=== PATIENT | female | born 1935 | race Caucasian/White ===

== ENCOUNTER 2024-02-01 19:25 | Emergency (ER) | payer MEDICARE ==
[2024-02-01] MEDS ORDERED: Sodium Chloride 0.9% 10 ML Syringe FLUSH PRN (20:05)
[2024-02-01] MEDS: Sodium Chloride 0.9% 1,000 ML IV SCH (20:09)
[2024-02-01 20:12] LABS: HEMATOCRIT 43.2 % (37.0-47.0); HEMOGLOBIN 14.8 g/dL (11.5-16.5); MEAN CORPUSCULAR HEMOGLOBIN 31.6 pg (27.0-32.0); MEAN CORPUSCULAR HGB CONC 34.3 g/dL (31.0-35.0); RED BLOOD CELL COUNT 4.69 M/uL (3.80-5.80); RED CELL DISTRIBUTION WIDTH 12.9 % (11.0-16.0); WHITE BLOOD CELL COUNT,WBC 13.4 K/uL (4.0-11.0)
[2024-02-01 20:37] LABS: A/G RATIO 1.1 (0.8-2.0); ALBUMIN 3.9 g/dL (3.4-5.0); ANION GAP 14.5 mmol/L (5.0-15.0); BILIRUBIN TOTAL 1.4 mg/dL (0.0-1.0); BUN/CREATININE RATIO 26.3 (6-25); CALCIUM 9.4 mg/dL (8.5-10.1); CARBON DIOXIDE,CO2 25.3 mmol/L (21.0-32.0); CREATININE 0.99 mg/dL (0.55-1.02); EST CRCL DRUG DOSING (CG) 31.66 mL/min; MAGNESIUM 1.5 mg/dL (1.8-2.4); PHOSPHORUS 3.4 mg/dL (2.5-4.9); POTASSIUM,K 3.8 mmol/L (3.5-5.1); PROTEIN TOTAL,TP 7.3 g/dL (6.4-8.2)
[2024-02-01] MEDS ORDERED: metroNIDAZOLE 500 MG Tab PO SCH (21:15)
[2024-02-01] MEDS: metroNIDAZOLE 500 MG Tab PO ONE (21:22)
[2024-02-01] MEDS: metroNIDAZOLE 500 MG Tab ONE (21:28)
[2024-02-01] MEDS ORDERED: metroNIDAZOLE 500 MG Tab ONE (22:30)
[2024-02-01 22:56] VITALS: BP 138/66; PULSE 76
== END 2024-02-01 22:32 | disposition home or self-care (01) ==
LOC: LB.ED 19:25
DX: K52.9 Noninfective gastroenteritis and colitis, unspecified (principal); E83.42 Hypomagnesemia; E86.0 Dehydration; I10 Essential (primary) hypertension; E78.00 Pure hypercholesterolemia, unspecified; K21.9 Gastro-esophageal reflux disease without esophagitis; E11.9 Type 2 diabetes mellitus without complications; E66.9 Obesity, unspecified; Z79.899 Other long term (current) drug therapy; Z79.84 Long term (current) use of oral hypoglycemic drugs; Z88.1 Allergy status to other antibiotic agents; Z88.8 Allergy status to other drugs, medicaments and biological substances
CPT/HCPCS: 36415; 80053; 83735; 84100; 85027; 96361; 96365; 99284; 99284-25; A9270-GY; J3475; J7030

== ENCOUNTER 2024-04-12 20:33 | Emergency (ER) | payer MEDICARE ==
[2024-04-12] MEDS ORDERED: oxyCODONE 5 MG Tab ONE (21:02)
[2024-04-12] MEDS: oxyCODONE 5 MG Tab PO ONE (21:04)
[2024-04-12] MEDS ORDERED: Ondansetron 4 MG Tab.DIS ONE (21:06)
[2024-04-12] MEDS: Ondansetron 4 MG Tab.DIS PO ONE (21:08)
[2024-04-12] MEDS ORDERED: predniSONE 10 MG Tab ONE (21:30)
[2024-04-12 22:20] VITALS: BP 140/59; PULSE 70
== END 2024-04-12 21:51 | disposition home or self-care (01) ==
LOC: LB.ED 20:33
DX: M54.16 Radiculopathy, lumbar region (principal); I10 Essential (primary) hypertension; E78.00 Pure hypercholesterolemia, unspecified; E11.9 Type 2 diabetes mellitus without complications; E66.9 Obesity, unspecified; Z87.891 Personal history of nicotine dependence; Z68.27 Body mass index [BMI] 27.0-27.9, adult; Z79.84 Long term (current) use of oral hypoglycemic drugs; Z79.899 Other long term (current) drug therapy; Z88.1 Allergy status to other antibiotic agents; Z88.8 Allergy status to other drugs, medicaments and biological substances
CPT/HCPCS: 99283; A9270-GY; J7512; Q0162